=== PATIENT | male | born 1995 | race Caucasian/White ===

== ENCOUNTER 2020-06-18 23:39 | Emergency (ER) | payer OTHER ==
[~2020-06-18] VITALS: Ht 198.1 cm; Wt 77.6 kg
[2020-06-18 23:56] VITALS: BP 121/84
--- NOTE | 2020-06-19 00:25 | NUR ---
research psychologist: pt from lobby to room 13
== END 2020-06-19 01:07 | disposition home or self-care (01) ==
LOC: ED 06-19 00:47
DX: K59.00 Constipation, unspecified (principal); R11.10 Vomiting, unspecified
CPT/HCPCS: 74018; 99283